=== PATIENT | male | born 1950 | race Caucasian/White ===

== ENCOUNTER → 2018-07-21 | Outpatient (CLI) | payer OTHER ==
[~2018-07-21] MED LIST: ARAVA20 MG PO; ASPIR 8181 MG PO; BRILINTA90 MG PO; CARVEDILOL12.5 MG PO; LIPITOR40 MG PO; LISINOPRIL10 MG PO; LISINOPRIL20 MG PO; PREDNISONE 5 MG5 M1 PO
--- NOTE | 2018-07-21 14:15 | EXE ---
[facility] [place] [address] STRESS ECHOCARDIOGRAM Name: DINORAH MARES GORDY Room #: REG CL [facility]#: [id number] ������������� Admission: 07/21/18 ������������� Attend Phys: Yvon Hua MD Discharge: ��� ������������� ��� Date of : 50 Date of Service: 07/21/18 1414 �� Report #: [id number] �������� ��������������������������������������������[id number] THIS REPORT FOR: //name// APPROVED REPORT Study performed: 07/21/2018 13:08:38 Exam: Stress Echocardiogram Indication: CAD Patient Location: Out-Patient Stress Nurse: Vianey Romeo RN Status: routine Ht: 5 ft 9 in HR: 69 bpm BP: 160/86 mmHg Rhythm: NSR Medical History Medical History: CAD s/p stent Medications: Listed on worksheet Allergies: No known drug allergies Cardiac Risk Factors: HTN, Hyperlipidemia Previous Cardiac Procedures: PCI Procedure The patient underwent an Exercise Stress Test using the Sohail Protocol. Blood pressure, heart rate, and EKG were monitored. An Echocardiogram was performed by game technician in four stages in quad fashion. At peak stress, four selected images were obtained and placed side by side with resting images for comparison. Stress Test Details Stress Test: Exercise stress testing was performed using a Sohail protocol. HR Resting HR: 70 bpm Max Heart Rate (APMHR): 152 bpm Max HR Achieved: 148 bpm Target HR (85% APMHR): 129 bpm % of APMHR: 97 Recovery HR: 95 bpm HR response to stress: Normal HR response to stress BP Resting BP: 160/86 mmHg Max BP: 240/114 mmHg Recovery BP: 200/104 mmHg [facility] [address] [place] [address] STRESS ECHOCARDIOGRAM Name: VISHNUDINORAH GORDY Room #: REG CL [facility]#: [id number] ������������� Admission: 07/21/18 ������������� Attend Phys: Yvon Hua MD Discharge: ��� ������������� ��� Date of : 50 Date of Service: 07/21/18 1414 �� Report #: [id number] �������� ��������������������������������������������[id number] BP response to stress: Abnormal hypertensive response to stress. ECG Resting ECG: Sinus Rhythm, RBBB Stress ECG: Sinus Rhythm, nonspecific ST-T abnormalities ST Change: borderline Clinical Reason for Termination: Severe short of breath Exercise duration: 3 min sec Highest Stage Achieved: Stage 1: 1.7 mph at 10% grade. Exercise capacity: 4.8 METs Pre-Stress Echo The resting Echocardiogram showed normal left ventricular contractility with an estimated Ejection Fraction of about 55%. No significant valvular abnormalities noted. Post-Stress Echo Technically difficult. Patient could not breath and had to sit up. Not all post images were able to be obtained. Conclusion Clinical Response: Indeterminant Exercise Capacity: Below Average Stress ECG Response: borderline Stress Echo Images: Indeterminant As above, the patient was severely symptomatic and all the post exercise images were not able to be obtained. Other Information Study Quality: Fair <Conclusion> As above, the patient was severely symptomatic and all the post exercise images were not able to be obtained. ��������������������������������������������� <ELECTRONICALLY SIGNED> ���������������������������������������� By: Yvon Hua MD ��������������������������������������������� 07/21/18 1414 141 141 Yvon Hua MD /INF
== END ==
LOC: CV 07:33
DX: I25.10 Atherosclerotic heart disease of native coronary artery without angina pectoris (principal)

== ENCOUNTER → 2018-07-24 | Outpatient (CLI) | payer OTHER ==
[~2018-07-24] VITALS: Ht 177.8 cm; Wt 88.5 kg
[2018-07-24 08:20] VITALS: BP 134/84
[2018-07-24 08:20] LABS: HEMATOCRIT 45.8 % (42.0-52.0); HEMOGLOBIN 15.3 gm/dL (14.0-18.0); MCH 32.4 pg (26.0-34.0); MCHC 33.5 g/dL (28.0-37.0); MCV 96.7 fL (80.0-100.0); RBC 4.73 mil/uL (4.50-6.00); RDW 13.2 % (10.5-14.5); WBC 4.2 thou/uL (4.0-11.0)
[2018-07-24 08:28] LABS: CALCIUM 10.2 mg/dL (8.5-10.1); CREATININE 0.7 mg/dL (0.7-1.3); POTASSIUM 4.2 mmol/L (3.5-5.1)
--- NOTE | 2018-07-24 08:40 | EKG ---
[address] [address] ELECTROCARDIOGRAM REPORT Name: VISHNUDINORAH GORDY Room #: REG CLI [facility]#: [id number] ������������������ Admission: 07/24/18 ������������������ Attend Phys: Yvon Hua MD Discharge: ������������������ Date of : 50 Report #: [id number] ����������������������������������������������������������������� [id number] THIS REPORT FOR: //name// [facility] Test Date: 2018-07-24 Test Time: 08:21:00 Pat Name: DINORAH MARES Department: Room: Gender: M Director Child Abuse Therapy: : 1950 Requested By: Yvon Hua Order Number: [id number] MD: Quentin Patel Measurements Intervals [place] Rate: 66 P: 9 WI: 155 QRS: -11 QRSD: 142 T: 13 QT: 413 QTc: 433 Interpretive Statements Sinus rhythm Right bundle branch block Baseline wander in lead(s) V1,V2,V5 Compared to ECG 09/13/2017 06:35:46 Electronically Signed On 07-24-2018 8:39:51 CDT by Quentin Patel [email or web address] ��������������������������������������������� <ELECTRONICALLY SIGNED> ���������������������������������������� By: Quentin Patel MD ��������������������������������������������� 07/24/18 0839 0 0 Quentin Patel MD /AISHA
--- NOTE | 2018-07-24 16:14 | CATHLAB ---
[facility] [place] [address] INVASIVE PROCEDURE REPORT Name: VISHNUDINORAH GORDY Room #: REG [facility]#: [id number] ������������� Admission: 07/24/18 ������������� Attend Phys: Yvon Hua MD Discharge: ��� ������������� ��� Date of : 50 Date of Service: 07/24/18 1614 �� Report #: [id number] �������� ��������������������������������������������[id number] THIS REPORT FOR: //name// APPROVED REPORT Study performed: 07/24/2018 09:14:13 Patient Details Patient Status: Out-Patient Room #: The patient is a 68 year-old male Event Personnel Yvon Hua Locks Tender, Elina Bland RN RN, Lexi Cintron Jackson, Valisa Monitor, Sasha Cheatham RTR, SERVICE LIAISON REPRESENTATIVE Monitor Procedures Performed Art Access - R femoral artery* Left Heart Cath w/or w/o Coronaries [id number] [facility] Hemostasis with Manual pressure 67100 Initial Mod Sed Same Phys/QHP Gr5y [id number] Indication Dyspnea, Positive stress test Risk Factors HypercholesterolemiaPhysical Activity, Coronary Artery DiseaseHypertension Procedure Narrative The Right Groin^ was infiltrated with 1% Lidocaine subcutaneous anesthesia. A PINNACLE 4FR Sheath #[id number] sheath was inserted into the RFA^. Coronary angiography was performed using coronary diagnostic catheters. The right coronary system was accessed and visualized with a JR4 catheter. The left coronary system was accessed and visualized with a JL4 catheter. The left ventricle was accessed and visualized with a ANGLED PIGTAIL catheter. Left ventricular/Aortic Valve gradient assessed via catheter pullback. Left ventriculogram was performed in 30 degree projection. Hemostasis was obtained with manual pressure following sheath removal without any complications. There was no hematoma. Intraoperative Conscious Sedation Sedation start time: 09:44 Case end Time: 10:14 Fentanyl 25 mcg Versed 1.5 mg [facility] [place] [address] INVASIVE PROCEDURE REPORT Name: DINORAH MARES Room #: REG [facility]#: [id number] ������������� Admission: 07/24/18 ������������� Attend Phys: Yvon Hua MD Discharge: ��� ������������� ��� Date of : 50 Date of Service: 07/24/18 1614 �� Report #: [id number] �������� ��������������������������������������������[id number] Fluoro Time: 1.35 minutes Dose: DAP 2416.50 cGycm2 315 mGy Contrast Type and Amount: Omnipaque 85 ml Coronary Angiography The patient's coronary anatomy is co- dominant. Diagnostic Cath Left Main This is a large caliber vessel, patent with no flow-limiting lesions. LAD This is a moderate size caliber vessel, traversing the anterior wall and wrapping around the apex. There is mild disease in the proximal segment. There is a stent in the midsegment, patent with minimal restenosis. Circumflex This is a codominant vessel, with no flow-limiting lesions. OM1 This is a moderate size caliber vessel, with a high takeoff from the left circumflex artery. This vessel is patent with no flow-limiting lesions. OM2 This is a patent vessel, with no flow-limiting lesions. OM3 This is a patent vessel, with no flow-limiting lesions. Right Coronary This is a patent vessel, with no flow-limiting lesions. R PDA This is a patent vessel, with no flow-limiting lesions. Hold motions no double metformin every 5 minutes for either his Seroquel Left Ventriculography The left ventricle is normal in size with normal contractility. The left ventricular ejection fraction is estimated to be 60-65%. Hemodynamics The aortic pressure is 144/92 mmHg with a mean of 115 mmHg. The left ventricular pressure is 160/19 mmHg with a mean of mmHg. The left ventricular end diastolic pressure is 23 mmHg. Conclusion 1. Patent stent in the mid LAD with minimal restenosis. 2. Codominant left circumflex system. [facility] [address] [place] [address] INVASIVE PROCEDURE REPORT Name: DINORAH MARES Room #: REG [facility]#: [id number] ������������� Admission: 07/24/18 ������������� Attend Phys: Yvon Hua MD Discharge: ��� ������������� ��� Date of : 50 Date of Service: 07/24/18 1614 �� Report #: [id number] �������� ��������������������������������������������[id number] 3. Normal LV systolic function. 4. Recommend aggressive risk factor management. ��������������������������������������������� <ELECTRONICALLY SIGNED> ���������������������������������������� By: Yvon Hua MD ��������������������������������������������� 07/24/18 1614 1614 Yvon Hua MD /INF
== END | disposition home or self-care (01) ==
LOC: CATH 07:54
PROVIDERS: Internal Medicine Cardiovascular Disease
DX: I25.10 Atherosclerotic heart disease of native coronary artery without angina pectoris (principal); I10 Essential (primary) hypertension; E78.00 Pure hypercholesterolemia, unspecified; E78.5 Hyperlipidemia, unspecified; M06.9 Rheumatoid arthritis, unspecified; Z87.891 Personal history of nicotine dependence; Z82.49 Family history of ischemic heart disease and other diseases of the circulatory system; Z98.890 Other specified postprocedural states; Z95.5 Presence of coronary angioplasty implant and graft; Z79.899 Other long term (current) drug therapy; Z79.82 Long term (current) use of aspirin

== ENCOUNTER → 2019-08-17 | Outpatient (CLI) | payer OTHER | LOC: SJCVCIMAG 13:10 → SJCVC 13:10 | DX: R94.31 Abnormal electrocardiogram [ECG] [EKG] (principal); I35.8 Other nonrheumatic aortic valve disorders; I11.9 Hypertensive heart disease without heart failure; I21.19 ST elevation (STEMI) myocardial infarction involving other coronary artery of inferior wall; I45.10 Unspecified right bundle-branch block; K21.9 Gastro-esophageal reflux disease without esophagitis; R06.00 Dyspnea, unspecified ==

== ENCOUNTER → 2019-09-01 | Outpatient (CLI) | payer OTHER | LOC: SJCVCIMAG 08-20 12:05 | DX: I45.19 Other right bundle-branch block (principal); R06.00 Dyspnea, unspecified; I25.10 Atherosclerotic heart disease of native coronary artery without angina pectoris; I10 Essential (primary) hypertension; E78.00 Pure hypercholesterolemia, unspecified; E78.5 Hyperlipidemia, unspecified; Z87.891 Personal history of nicotine dependence; Z79.82 Long term (current) use of aspirin; Z79.899 Other long term (current) drug therapy ==

== ENCOUNTER → 2019-12-25 | Outpatient (CLI) | payer OTHER ==
[~2019-12-25] MED LIST changes: +FLOMAX0.4 MG PO; -LISINOPRIL20 MG PO; +LO-DOSE ASPIRIN81 M1 PO; +NEURONTIN300 MG PO; +PROTONIX40 M4 PO
== END ==
LOC: LAB 12-24 12:39
PROVIDERS: ATTEND Ophthalmology
DX: Z01.812 Encounter for preprocedural laboratory examination (principal); Z20.828 Contact with and (suspected) exposure to other viral communicable diseases

== ENCOUNTER 2019-12-31 06:11 | Day surgery (SDC) | payer OTHER ==
[~2019-12-31] VITALS: Ht 175.3 cm; Wt 87.1 kg
--- NOTE | ~2019-12-31 | O ---
[facility] [place] [address] OPERATIVE REPORT Name: DINORAH MARES Room #: 150-3 [facility].#: [id number] Admission: 12/31/19 Attend Phys: Trent Morales MD Discharge: Date of : 50 Report #: [id number] THIS REPORT FOR: cc: Curtis Gregory,Trent Robert MD ~ CC: Curtis Morales DATE OF SERVICE: 12/31/2019 SURGEON: Trent Morales MD [employer] BI DEVELOPER: None. PREOPERATIVE DIAGNOSIS: Bilateral lower lid ectropion. POSTOPERATIVE DIAGNOSIS: Bilateral lower lid ectropion. OPERATION PERFORMED: Bilateral lower lid ectropion repair. ANESTHESIA: Local with IV sedation. COMPLICATIONS: None. INDICATIONS FOR PROCEDURE: This patient has bilateral acquired lower lid ectropion with chronic tearing, keratopathy and discharge. The current procedures are undertaken in order to improve the patient's visual function, lacrimal outflow, and level of comfort. Informed consent was obtained to include but not limit to the risk of loss of vision, bleeding, infection, scarring, failure to improve the problem and need for further surgery. DESCRIPTION OF OPERATION: The patient was taken to the operating room where 2% Xylocaine with epinephrine mixed with equal parts of 0.75% Marcaine with Wydase was administered transcutaneously and transconjunctivally to each lower lid and lateral canthal area. The patient was then prepped and draped in the usual sterile fashion. A Lizet clamp was then used to clamp the left lateral canthus following which a sharp canthotomy and cantholysis were performed. The tarsal strip was prepared laterally, removing the lash bearing portion of the redundant lid margin and the redundant tarsal plate. Hemostasis was achieved with a monopolar cautery, as it was throughout the case. The tarsal strip was then secured to the internal portion of the lateral orbital tubercle with two interrupted 5-0 Prolene sutures. The lateral canthal angle was sharply reformed [address] [place] [address] OPERATIVE REPORT Name: DINORAH MARES Bulmaro Room #: 150-3 [facility]#: [id number] Admission: 12/31/19 Attend Phys: Trent Morales MD Discharge: Date of : 50 Report #: [id number] as the subcutaneous structures and the skin were closed with multiple interrupted 6-0 plain gut sutures. Attention was then turned to the right side where the same procedure was performed. The wounds were cleaned and dressed with ophthalmic antibiotic ointment. The patient was then transported to the recovery area, having tolerated the procedure well with no anesthetic or operative complications being noted. By: 0826 [id number] Trent Morales MD /nt
[2019-12-31 08:22] VITALS: BP 142/87
== END 2019-12-31 09:20 | disposition home or self-care (01) ==
LOC: OR 06:11 → TBA 06:11 → OR 09:20
PROVIDERS: ATTEND Ophthalmology
DX: H02.105 Unspecified ectropion of left lower eyelid (principal); H02.102 Unspecified ectropion of right lower eyelid; I10 Essential (primary) hypertension; E78.5 Hyperlipidemia, unspecified; K21.9 Gastro-esophageal reflux disease without esophagitis; M06.9 Rheumatoid arthritis, unspecified; N40.0 Benign prostatic hyperplasia without lower urinary tract symptoms; Z79.899 Other long term (current) drug therapy; Z98.890 Other specified postprocedural states
CPT/HCPCS: 50010; 50101; 50386; 50398; 51636; 56527; 56531; 62110; 62850; 70005

== ENCOUNTER → 2020-01-25 | Outpatient (CLI) | payer OTHER | LOC: LAB 07:53 | PROVIDERS: ATTEND Ophthalmology | DX: Z01.812 Encounter for preprocedural laboratory examination (principal); Z20.828 Contact with and (suspected) exposure to other viral communicable diseases ==

== ENCOUNTER 2020-01-28 06:12 | Day surgery (SDC) | payer OTHER ==
[~2020-01-28] VITALS: Ht 175.3 cm; Wt 88.5 kg
--- NOTE | ~2020-01-28 | O ---
[facility] [place] [place] [address] OPERATIVE REPORT Name: DINORAH MARES Room #: 150-4 [facility]#: [id number] Admission: 01/28/20 Attend Phys: Trent Morales MD Discharge: Date of : 50 Report #: [id number] THIS REPORT FOR: cc: Curtis Gregory,Curtis Conte,Trent Galvan MD ~ CC: Curtis Rdz DATE OF SERVICE: 01/28/2020 SURGEON: Trent Morales MD SUMMER NANNY: None. PREOPERATIVE DIAGNOSIS: Bilateral upper lid dermatochalasia with superior visual field defect. POSTOPERATIVE DIAGNOSIS: Bilateral upper lid dermatochalasia with superior visual field defect. OPERATION PERFORMED: Bilateral upper lid functional blepharoplasty. ANESTHESIA: Local with IV sedation. COMPLICATIONS: None. INDICATIONS FOR SURGERY: This patient has acquired upper lid dermatochalasia with superior visual field loss both eyes because of excessive upper lid tissues to include skin and fat. Visual field testing demonstrates dense superior visual defects. Retesting with the upper lid elevated shows an improvement in visual field loss of over 30% and in excess of 12 degrees. The current procedures are undertaken in order to improve the patient's visual function. Informed consent was obtained to include but not limited to the loss of vision, bleeding, infection, scarring, failure to improve the problem and need for further surgery. DESCRIPTION OF OPERATION: The patient was taken to the operating room, where 2% Xylocaine with epinephrine mixed with equal parts of 0.75% Marcaine with Wydase was administered transcutaneously to each upper lid. The patient was then prepped and draped in the usual sterile fashion and a skin-marking pen was then utilized to outline an upper lid crease that was symmetrical on each side. Graefe forceps were then used to quantitate the redundant upper lid skin and it [address] [address] OPERATIVE REPORT Name: DINORAH MARES Room #: 150-4 [facility]#: [id number] Admission: 01/28/20 Attend Phys: Trent Morales MD Discharge: Date of : 50 Report #: [id number] was similarly outlined. The incisions were then made with Dylan scissors and a skin-muscle flap removed from each side with high-temp cautery. Hemostasis was achieved with the monopolar cautery as it was throughout the case. The orbital septum was then identified and the central and medial fat pads were inspected. The redundant soft tissue was then sculpted with the monopolar cautery. The upper lid crease was then reformed with tightening of the pretarsal orbicularis muscle. The upper lid crease was then further reformed with multiple interrupted 6-0 chromic sutures. The skin was then closed with a running 6-0 plain gut suture. The wound was then cleaned and dressed with ophthalmic antibiotic ointment and a nonstick dressing. The patient was transported to the recovery area, where cold compresses were applied, having tolerated the procedure well with no anesthetic or operative complications being noted. By: 0749 [id number] Trent Morales MD /nt
[2020-01-28 07:00] VITALS: BP 151/92
== END 2020-01-28 08:22 | disposition home or self-care (01) ==
LOC: TBA 06:12 → OR 06:12 → TBA 06:13 → OR 08:22
PROVIDERS: ATTEND Ophthalmology
DX: H02.834 Dermatochalasis of left upper eyelid (principal); H02.831 Dermatochalasis of right upper eyelid; I10 Essential (primary) hypertension; E78.5 Hyperlipidemia, unspecified; N40.0 Benign prostatic hyperplasia without lower urinary tract symptoms; I25.10 Atherosclerotic heart disease of native coronary artery without angina pectoris; Z72.89 Other problems related to lifestyle; Z79.899 Other long term (current) drug therapy; Z98.890 Other specified postprocedural states; Z79.82 Long term (current) use of aspirin
CPT/HCPCS: 50010; 50101; 50386; 50398; 51636; 56531; 62110; 62850; 70005

== ENCOUNTER → 2020-03-22 | Outpatient (CLI) | payer OTHER | LOC: SJCVC 10:10 → SJCVCIMAG 10:10 | PROVIDERS: ATTEND Internal Medicine Cardiovascular Disease | DX: M79.602 Pain in left arm (principal); R60.9 Edema, unspecified; I45.10 Unspecified right bundle-branch block; R94.31 Abnormal electrocardiogram [ECG] [EKG]; I25.10 Atherosclerotic heart disease of native coronary artery without angina pectoris; I10 Essential (primary) hypertension; E78.00 Pure hypercholesterolemia, unspecified; Z79.82 Long term (current) use of aspirin; Z79.899 Other long term (current) drug therapy; Z82.49 Family history of ischemic heart disease and other diseases of the circulatory system; Z87.891 Personal history of nicotine dependence ==

== ENCOUNTER → 2020-05-18 | Outpatient (CLI) | payer OTHER | LOC: SJCVC 08:05 | PROVIDERS: ATTEND Internal Medicine Cardiovascular Disease | DX: E78.00 Pure hypercholesterolemia, unspecified (principal); Z87.891 Personal history of nicotine dependence; Z72.89 Other problems related to lifestyle; Z98.890 Other specified postprocedural states; Z88.8 Allergy status to other drugs, medicaments and biological substances ==

== ENCOUNTER → 2020-05-24 | Outpatient (CLI) | payer OTHER | LOC: SJCVC 11:30 | PROVIDERS: ATTEND Internal Medicine Cardiovascular Disease | DX: R94.31 Abnormal electrocardiogram [ECG] [EKG] (principal); I45.10 Unspecified right bundle-branch block; I25.10 Atherosclerotic heart disease of native coronary artery without angina pectoris; E78.5 Hyperlipidemia, unspecified; M06.9 Rheumatoid arthritis, unspecified; I10 Essential (primary) hypertension; E78.00 Pure hypercholesterolemia, unspecified; R60.9 Edema, unspecified; Z98.890 Other specified postprocedural states; Z98.61 Coronary angioplasty status; Z79.82 Long term (current) use of aspirin; Z79.899 Other long term (current) drug therapy; Z87.891 Personal history of nicotine dependence; Z82.49 Family history of ischemic heart disease and other diseases of the circulatory system ==

== ENCOUNTER → 2020-06-21 | Outpatient (CLI) | payer OTHER | LOC: SJCVC 12:45 | PROVIDERS: ATTEND Internal Medicine Cardiovascular Disease | DX: R94.31 Abnormal electrocardiogram [ECG] [EKG] (principal); I45.10 Unspecified right bundle-branch block; I25.10 Atherosclerotic heart disease of native coronary artery without angina pectoris; I10 Essential (primary) hypertension; E78.00 Pure hypercholesterolemia, unspecified; R60.9 Edema, unspecified; R53.83 Other fatigue; E78.5 Hyperlipidemia, unspecified; Z79.82 Long term (current) use of aspirin; Z79.899 Other long term (current) drug therapy; Z87.891 Personal history of nicotine dependence; Z72.89 Other problems related to lifestyle ==

== ENCOUNTER → 2020-12-21 | Outpatient (CLI) | payer OTHER | LOC: SJCVC 09:35 | PROVIDERS: ATTEND Internal Medicine Cardiovascular Disease | DX: R94.31 Abnormal electrocardiogram [ECG] [EKG] (principal); I45.10 Unspecified right bundle-branch block; R00.1 Bradycardia, unspecified; I25.10 Atherosclerotic heart disease of native coronary artery without angina pectoris; I10 Essential (primary) hypertension; E78.00 Pure hypercholesterolemia, unspecified; R60.9 Edema, unspecified; E78.5 Hyperlipidemia, unspecified; E87.6 Hypokalemia; M54.16 Radiculopathy, lumbar region; I73.9 Peripheral vascular disease, unspecified; M06.9 Rheumatoid arthritis, unspecified; Z87.891 Personal history of nicotine dependence; Z79.82 Long term (current) use of aspirin; Z79.899 Other long term (current) drug therapy; Z88.8 Allergy status to other drugs, medicaments and biological substances; Z82.49 Family history of ischemic heart disease and other diseases of the circulatory system ==